=== PATIENT | male | born 1960 | race Caucasian/White ===

== ENCOUNTER 2024-04-19 13:34 | Emergency (ER) | payer MEDICARE, OTHER ==
[~2024-04-19] VITALS: Ht 182.9 cm; Wt 115.9 kg
[2024-04-19] MEDS: HALOPERIDOL LACTATE 5 MG/ML INJ VIAL IM ONE ×2 (13:49→20:35)
[2024-04-19] MEDS: LORazepam 2MG/ML-1ML VIAL IM ONE ×3 (13:49→20:36)
[2024-04-19] MEDS: diphenhdrAMINE HCL 50 MG/1 ML VL IM ONE ×2 (13:49→16:15)
[2024-04-19 15:20] VITALS: PULSE 118; RESP 24; TEMP 98; O2SAT 94
[2024-04-19 16:00] VITALS: BP 125/89
[2024-04-19 21:18] LABS: Amphetamine Screen, Urine Pos (NEGATIVE); Barbiturate Scree,Urine Neg (NEGATIVE); Benzodiazephine Screen, Urine Neg (NEGATIVE); Cannabinoid Screen, Urine Pos (NEGATIVE); Cocaine Screen, Urine Neg (NEGATIVE); Opiate Scree,Urine Neg (NEGATIVE); Phencyclidine Screen, Urine Neg (NEGATIVE)
[2024-04-20 07:42] VITALS: PULSE 89; RESP 16
[2024-04-20] MEDS: levETIRAcetam 500 MG TAB PO ONE (11:11)
[2024-04-20] MEDS: LORazepam 2MG/ML-1ML VIAL IM ONE ×2 (11:22→18:59)
[2024-04-20] MEDS: ACETAMINOPHEN 325 MG TAB PO ONE (14:22)
[2024-04-20] MEDS: diphenhdrAMINE HCL 50 MG/1 ML VL IM ONE (18:59)
[2024-04-20] MEDS: HALOPERIDOL LACTATE 5 MG/ML INJ VIAL IM ONE (19:00)
[2024-04-20 19:40] VITALS: PULSE 89; RESP 16
[2024-04-20] MEDS: HALOPERIDOL 5 MG TAB PO SCH (21:09)
[2024-04-20] MEDS: levETIRAcetam 500 MG TAB PO SCH (21:09)
== END 2024-04-20 21:38 | disposition home or self-care (01) ==
LOC: EDBD 13:34 → ER 13:45
DX: F23 Brief psychotic disorder (principal); R56.9 Unspecified convulsions; F31.9 Bipolar disorder, unspecified; I10 Essential (primary) hypertension; F10.129 Alcohol abuse with intoxication, unspecified; F17.210 Nicotine dependence, cigarettes, uncomplicated; Y90.8 Blood alcohol level of 240 mg/100 ml or more
CPT/HCPCS: 36415; 80307; 80320; 96372; 99285; J1200; J1630; J2060